=== PATIENT | female | born 1940 | race African-American/Black ===

== ENCOUNTER 2017-11-23 12:06 | Emergency (ER) | payer MEDICARE, MEDICAID ==
[~2017-11-23 12:06] MED LIST: JANU100T PO; LISI10TA PO; LORA-474 PO; NOVOLOGMXP SQ; RANI150T PO; SYNT112T PO; TRAM50 PO; TRAZ50TA4 PO
[2017-11-23] MEDS ORDERED: LISI10TA PO (17:14)
[2017-11-23] MEDS ORDERED: ASPI-516 CHEW (17:14)
[2017-11-23] MEDS ORDERED: TRAZ50TA12 PO (17:14)
[2017-11-23] MEDS ORDERED: OXYB5TAB8 PO (17:14)
[2017-11-23] MEDS ORDERED: SITA1TAB2 PO (17:14)
[2017-11-23] MEDS ORDERED: LORA1TAB12 PO (17:14)
[2017-11-23] MEDS ORDERED: NOVORP2 SQ (17:14)
[2017-11-23] MEDS ORDERED: LEVO112T2 PO (17:14)
[2017-11-23] MEDS ORDERED: SERT25TA83 PO (17:14)
== END 2017-11-23 12:49 | disposition left against medical advice (07) ==
LOC: NED 12:06
DX: M79.89 Other specified soft tissue disorders (principal)
CPT/HCPCS: 99281

== ENCOUNTER 2017-11-23 15:46 | Emergency (ER) | payer MEDICARE, MEDICAID ==
[2017-11-23 15:48] VITALS: BP 121/73; PULSE 76; RESP 18; TEMP 97.6; O2SAT 99
--- NOTE | 2017-11-23 16:05 | PD ---
HPI Chief Complaint: Edema Time Seen by Provider: 16:05 Travel History International Travel<30 days: No Contact w/Intl Traveler<30days: No Traveled to known affect area: No History of Present Illness HPI 76-year-old female came to the emergency room with her daughter with history of bilateral leg swelling that was found out by her home health nurse. She is sent here since the home health nurse is concerned about DVT. Patient walks with a walker. No previous history of DVT or PE. Patient is not on any blood thinners. No recent surgeries. Vital signs are stable. Patient does not complain of any chest pain or shortness of breath. No history of fever or chills. PFSH Past Medical History Narrative Medical List of her past medical, surgical, social and family histories reviewed from the nursing note Arthritis: Yes Autoimmune Disease: No Blood Disorders: No Anxiety: Yes Depression: Yes Heart Rhythm Problems: No Cancer: No Cardiac Catheterization: No Cardiovascular Problems: Yes (HTN) High Cholesterol: Yes Chemotherapy: No Chest Pain: No Congestive Heart Failure: No Diabetes: Yes (TYPE 1) Diminished Hearing: No Endocrine: Yes GERD: Yes Glaucoma: No Genitourinary: Yes Hypertension: Yes Insomnia: Yes Kidney Stones: No Musculoskeletal: Yes Neurologic: No Psychiatric: No Myocardial Infarction: No Radiation Therapy: No Renal Failure: No Thyroid Disease: Yes (GOITER REMOVED) Menopausal: Yes : 2 Para: 2 Miscarriage: 0 : 0 Past Surgical History Abdominal Surgery: No AICD: No Cardiac Surgery: No Coronary Artery Bypass Graft: No Ear Surgery: No Endocrine Surgery: Yes (GOITER REMOVED) Eye Surgery: Yes (LASIK SX R & L) Genitourinary Surgery: No Hysterectomy: Yes Joint Replacement: Yes ([employer]. HIP) Oral Surgery: No Pacemaker: No Thoracic Surgery: No Other Surgery: Yes Social History Alcohol Use: Yes (1 DRINK A DAY ) Tobacco Use: No Substance Use: No Allergies-Medications (Allergen,Severity, Reaction): Coded Allergies: No Known Allergies (Verified Adverse Reaction, Unknown, 11/23/17) Comments No known drug allergies. Reported Meds & Prescriptions Reported Meds & Active Scripts Active Reported Trazodone (Trazodone HCl) 50 Mg Tab 50 Mg PO HS Sertraline (Sertraline HCl) 25 Mg Tab 25 Mg PO DAILY Ditropan (Oxybutynin Chloride) 5 Mg Tab 5 Mg PO Q12HR Novolin R Inj (Insulin Human Regular) 1,000 Unit/10 Ml Vial 20 Units SQ Januvia (Sitagliptin Phosphate) 100 Mg Tab 100 Mg PO DAILY Aspirin 81 Mg Chew 81 Mg CHEW DAILY Lisinopril-Hctz 10-12.5 Mg Tab 1 Tab PO DAILY Levothyroxine (Levothyroxine Sodium) 112 Mcg Tab 112 Mcg PO DAILY Lorazepam 1 Mg Tab 1 Mg PO Q8H PRN Narrative Medication List of her home medications reviewed from the nursing note. Review of Systems Except as stated in HPI: all other systems reviewed are Neg Musculoskeletal: Positive: Edema Physical Exam Narrative GENERAL: Awake, alert, elderly, no obvious distress SKIN: Focused skin assessment warm/dry. HEAD: Atraumatic. Normocephalic. EYES: Pupils equal and round. No scleral icterus. No injection or drainage. ENT: No nasal bleeding or discharge. Mucous membranes pink and moist. NECK: Trachea midline. No JVD. CARDIOVASCULAR: Regular rate and rhythm. No murmur appreciated. RESPIRATORY: No accessory muscle use. Clear to auscultation. Breath sounds equal bilaterally. GASTROINTESTINAL: Abdomen soft, non-tender, nondistended. Hepatic and splenic margins not palpable. MUSCULOSKELETAL: No obvious deformities. No clubbing. No cyanosis. Bilateral leg edema. No redness or warmth. NEUROLOGICAL: Awake and alert. No obvious cranial nerve deficits. Motor grossly within normal limits. Normal speech. PSYCHIATRIC: Appropriate mood and affect; insight and judgment normal. Data Data Last Documented VS Orders Orders Us Leg Venous Doppler Bilat (11/23/17 ) Ed Discharge Order (11/23/17 17:36) [facility] Medical Decision Making Medical Screen Exam Complete: Yes Emergency Medical Condition: Yes Medical Record Reviewed: Yes Differential Diagnosis DVT, dependent edema Narrative Course 4:17 PM awaiting for the ultrasound to be done and resulted. If ultrasound is negative patient will be discharged home. 5:00 Case was signed over to the on coming ER physician Procedures EKG Prior to Arrival: Azam Theodore MD Nov 23, 2017 16:05
[2017-11-23] MEDS ORDERED: OXYB5TAB8 PO (17:14)
[2017-11-23] MEDS ORDERED: ASPI-516 CHEW (17:14)
[2017-11-23] MEDS ORDERED: LEVO112T2 PO (17:14)
[2017-11-23] MEDS ORDERED: NOVORP2 SQ (17:14)
[2017-11-23] MEDS ORDERED: SITA1TAB2 PO (17:14)
[2017-11-23] MEDS ORDERED: LISI10TA PO (17:14)
[2017-11-23] MEDS ORDERED: TRAZ50TA12 PO (17:14)
[2017-11-23] MEDS ORDERED: SERT25TA83 PO (17:14)
[2017-11-23] MEDS ORDERED: LORA1TAB12 PO (17:14)
--- NOTE | 2017-11-23 17:25 | RADRPT ---
EXAM DATE/TIME: 11/23/2017 16:40 [facility] COMPARISON: No previous studies available for comparison. INDICATIONS : Bilateral leg swelling. MEDICAL HISTORY : Hypercholesterolemia. Hypertension. Gastroesophageal reflux disease. Glasses. Arthritis. Diabetes. De pression. Anxiety. SURGICAL HISTORY : Hysterectomy. Goiters removed. Bilateral cataract surgery. Bilateral hip replacement. ENCOUNTER: Initial ACUITY: 1 week PAIN SCORE: 5/10 LOCATION: Bilateral legs. TECHNIQUE: Venous ultrasound of the left and right leg was performed from the inguinal ligament to the proximal calf. Real-time, color Doppler and spectral tracing, compression and augmentation techniques were us ed. FINDINGS: RIGHT LEG: There is normal compressibility of the deep venous system from the inguinal region to the proximal ca lf. No echogenic clot is seen in the lumen of the common femoral, femoral, popliteal, and posterior tibial veins. There is a normal response of the venous system to proximal and distal augmentation an d respiration. LEFT LEG: There is normal compressibility of the deep venous system from the inguinal region to the proximal ca lf. No echogenic clot is seen in the lumen of the common femoral, femoral, popliteal, and posterior tibial veins. There is a normal response of the venous system to proximal and distal augmentation an d respiration. CONCLUSION: 1. No DVT. 2. Subcutaneous edema within the calves bilaterally. Trell Hopkins Jr., MD on November 23, 2017 at 17:22 Board Certified Radiologist. This report was verified electronically.
--- NOTE | 2017-11-23 17:35 | PD ---
Data Data Last Documented VS Vital Signs Date Time Temp Pulse Resp B/P (MAP) Pulse Ox O2 Delivery O2 Flow Rate FiO2 11/23/17 15:48 97.6 76 18 121/73 (89) 99 Orders Orders Us Leg Venous Doppler Bilat (11/23/17 ) MDM Supervised Visit with TAE: No Narrative Course The patient was initially evaluated by the previous provider and sent out to me at the beginning of my shift at 5:00 PM pending bilateral lower extremity venous duplex and disposition. See her note for further details. Briefly this is a 76-year-old female who was sent in by her home health nurse for evaluation of lower extremity edema to rule out DVT. I lateral lower extremity venous duplex shows no DVT, subcutaneous edema bilaterally. Patient denies history of CHF. She is not short of breath. This is likely dependent edema. She is stable for discharge home with outpatient follow-up with her primary care physician this week. She was advised on when to return to the emergency department. Both patient and the patient's daughter verbalized understanding and agreement with plan. Diagnosis Primary Impression: Bilateral leg edema Referrals: Primary Care Physician 3 days Additional Instruction: Follow-up with your primary care physician this week. Keep legs elevated. Return to the emergency department for worsening symptoms or any other concerns. Disposition: 01 DISCHARGE HOME Condition: Stable Mathew Bryson MD Nov 23, 2017 17:35
== END 2017-11-23 18:10 | disposition home or self-care (01) ==
LOC: NEPD 15:46
DX: R60.0 Localized edema (principal); E07.9 Disorder of thyroid, unspecified; E10.9 Type 1 diabetes mellitus without complications; I10 Essential (primary) hypertension; Z79.4 Long term (current) use of insulin
CPT/HCPCS: 93970; 99284